=== PATIENT | female | born 1950 | race Caucasian/White ===

== ENCOUNTER 2020-01-13 07:58 | Emergency (ER) | payer OTHER ==
[~2020-01-13] VITALS: Ht 162.6 cm; Wt 111.6 kg
[~2020-01-13 07:58] MED LIST: BENICAR HCT 401 EAC1 PO; BENICAR20 MG; CRESTOR20 MG PO; FLEXERIL PO; LOPRESSOR HCT1 EAC2; LOPRESSOR25; LOPRESSOR25 PO; NORCO 5-325 TA1 EACH; NORCO 5-325 TA1 EACH PO; OMEPRAZOLE 20 M20 MG; OMEPRAZOLE40 MG PO; PRAVASTATIN SOD40 MG
[2020-01-13] MEDS ORDERED: LISINOPRIL2.5 MG PO (08:09)
[2020-01-13] MEDS ORDERED: SERTRALINE HCL100 MG PO (08:12)
[2020-01-13 08:47] LABS: ABSOLUTE BASOPHILS 0.1 thou/uL (0.0-0.2); ABSOLUTE EOSINOPHILS 0.1 thou/uL (0.0-0.7); ABSOLUTE LYMPHOCYTES 1.6 thou/uL (0.8-5.3); ABSOLUTE MONOCYTES 0.4 thou/uL (0.0-1.2); ABSOLUTE NEUTROPHILS 5.6 thou/uL (1.6-8.1); BASOPHILS 0.6 %; EOSINOPHILS 1.6 %; HEMOGLOBIN 13.7 gm/dL (12.0-15.0); LYMPHOCYTES 20.7 %; MCH 29.6 pg (26.0-34.0); MCHC 33.4 g/dL (28.0-37.0); MCV 88.6 fL (80.0-100.0); MONOCYTES 5.3 %; MPV 9.6 fl. (7.2-11.1); NUCLEATED RBCS 0 /100WBC; PLATELET COUNT* 156 thou/uL (150-400); POLYS 71.8 %; RBC 4.63 mil/uL (4.20-5.00); RDW-CV 13.9 % (10.5-14.5); WBC 7.7 thou/uL (4.0-11.0)
[2020-01-13 09:07] LABS: CALCIUM 8.2 mg/dL (8.5-10.1); POTASSIUM 3.8 mmol/L (3.5-5.1)
[2020-01-13 09:11] LABS: ALBUMIN 3.7 g/dL (3.4-5.0); TOTAL BILIRUBIN 0.4 mg/dL (<0.1-1.0); TOTAL PROTEIN 7.4 g/dL (6.4-8.2)
[2020-01-13] MEDS ORDERED: NORCO 5-325 TA1 EAC2 PO (10:34)
[2020-01-13] MEDS ORDERED: FLEXERIL PO (10:34)
[2020-01-13 11:03] VITALS: BP 138/60
== END 2020-01-13 11:05 | disposition home or self-care (01) ==
LOC: M.ERS 07:58
PROVIDERS: Emergency Medicine Emergency Medical Services
DX: M54.5 Low back pain (principal); Z79.899 Other long term (current) drug therapy; Z90.710 Acquired absence of both cervix and uterus; Z90.49 Acquired absence of other specified parts of digestive tract; V89.2XXA Person injured in unspecified motor-vehicle accident, traffic, initial encounter; Y93.89 Activity, other specified; Y92.89 Other specified places as the place of occurrence of the external cause; Y99.8 Other external cause status